=== PATIENT | female | born 1945 | race Caucasian/White ===

== ENCOUNTER 2022-12-07 09:33 | Outpatient (CLI) | payer MEDICARE, SELFPAY ==
[2022-12-07 17:49] LABS: Free T4 Free Thyroxine 1.51 ng/mL (0.78-2.19)
== END 2022-12-07 09:34 | disposition home or self-care (01) ==
LOC: ANHWCLAB 09:35
PROVIDERS: PCP Family Medicine; Visit Provider Internal Medicine Endocrinology, Diabetes & Metabolism
DX: E03.9 Hypothyroidism, unspecified (principal)
CPT/HCPCS: 36415; 84439; 84443